=== PATIENT | male | born 1985 | race Two or more races ===

== ENCOUNTER 2019-06-17 19:00 | Inpatient (IN) | payer OTHER ==
[2019-06-17 23:49] VITALS: BMI 23.3
--- NOTE | 2019-06-18 02:16 | HP ---
COWS - Scale Resting Pulse: 0= HI 80 or Below Sweatin=Flushed/Facial Moisture Restless Observation: 0= Sits Still Pupil Size: 1= Pupils >than Normal Bone or Joint Aches: 4=Acute Joint/Muscle Pain Runny Nose/ Eye Tearin= Runny Nose/Eyes GI Upset > 30mins: 1= Stomach Cramp Tremor Observation: 2= Slight Tremor Visible Yawning Observation: 1= 1-2x During Session Anxiety or Irritability: 4=Extreme Anxiety Goose Flesh Skin: 0=Smooth Skin COWS Score: 17 CIWA Score Nausea/Vomitin Muscle Tremors: 3 Anxiety: 4-Mod. Anxious/Guarded Agitation: 4-Moderately Restless Paroxysmal Sweats: 2 Orientation: 1-Uncertain about Date Tacttile Disturbances: 0-None Auditory Disturbances: 0-None Visual Disturbances: 0-None Headache: 3-Moderate CIWA-Ar Total Score: 19 - Admission Criteria OASAS Guidelines: Admission for Medically Managed Detox: Requires at least one of the followin. CIWA greater than 12 2. Seizures within the past 24 hours 3. Delirium tremens within the past 24 hours 4. Hallucinations within the past 24 hours 5. Acute intervention needed for co occurring medical disorder 6. Acute intervention needed for co occurring psychiatric disorder 7. Severe withdrawal that cannot be handled at a lower level of care (continued vomiting, continued diarrhea, abnormal vital signs) requiring intravenous medication and/or fluids 8. Admission ROS [facility] Chief Complaint: Heroin and Xanax withdrawal symptoms Allergies/Adverse Reactions: Allergies Allergy/AdvReac Type Severity Reaction Status Date / Time No Known Allergies Allergy Verified 06/17/19 23:37 History of Present Illness: 34 years old male with 8 years of opioid dependence and 3 years of Benzo dependence is seeking admission to detox. Patient denies past medical history and denies suicidal ideation at this time. Exam Limitations: No Limitations - Ebola screening Have you traveled outside of the country in the last 21 days: No (N) Have you had contact with anyone from an Ebola affected area: No Do you have a fever: No - Review of Systems Constitutional: Chills, Loss of Appetite, Night Sweats, Changes in sleep, Weakness EENT: reports: No Symptoms Reported Respiratory: reports: No Symptoms reported Cardiac: reports: No Symptoms Reported GI: reports: Poor Appetite, Poor Fluid Intake, Abdominal cramping : reports: No Symptoms Reported Musculoskeletal: reports: Back Pain, Muscle Pain Integumentary: reports: Dryness, Flushing Neuro: reports: Headache, Tremors Endocrine: reports: No Symptoms Reported Hematology: reports: No Symptoms Reported Psychiatric: reports: No Sypmtoms Reported, Anxious, Depressed Other Systems: Reviewed and Negative Patient History - Patient Medical History Hx Anemia: No ( ) Hx Asthma: No Hx Chronic Obstructive Pulmonary Disease (COPD): No Hx Cancer: No Hx Cardiac Disorders: No Hx Congestive Heart Failure: No Hx Hypertension: No Hx Hypercholesterolemia: No Hx Pacemaker: No HX Cerebrovascular Accident: No Hx Seizures: No Hx Dementia: No Hx Diabetes: No Hx Gastrointestinal Disorders: No Hx Liver Disease: No Hx Genitourinary Disorders: No Hx Sexually Transmitted Disorders: No Hx Renal Disease (ESRD): No Hx Thyroid Disease: No Hx Human Immunodeficiency Virus (HIV): No Hx Hepatitis C: No Hx Depression: No Hx Suicide Attempt: No Hx Bipolar Disorder: No Hx Schizophrenia: No - Patient Surgical History Past Surgical History: No - PPD History Previous Implant?: Yes - Reproductive History Patient is a Female of Child Bearing Age (11 -55 yrs old): No (male) - Smoking Cessation Smoking history: Current every day smoker Have you smoked in the past 12 months: Yes Aproximately how many cigarettes per day: 20 Hx Chewing Tobacco Use: No Initiated information on smoking cessation: Yes 'Breaking Loose' booklet given: 06/18/19 - Substance & Tx. History Hx Alcohol Use: No Hx Substance Use: Yes Substance Use Type: Marijuana, Opiates Hx Substance Use Treatment: Yes ([facility]) - Substances abused Crystal meth Substance route: Smoking Frequency: 1-2 times per week Amount used: 1 gram Age of first use: 26 Date of last use: 06/16/19 Heroin Substance route: Inhalation Frequency: 1-2 times per week Amount used: half a gram, not using it that much Age of first use: 29 Date of last use: 06/17/19 Oxycontin Substance route: Oral Frequency: Daily Amount used: 4 of 15 mg Age of first use: 27 Date of last use: 05/22/19 Benzodiazepine (Klonopin) Substance route: Oral Frequency: 3-6 times per week Amount used: 1 mg Age of first use: 32 Date of last use: 06/14/19 Alprazolam (Xanax) Substance route: Oral Frequency: 3-6 times per week Amount used: 1 mg Age of first use: 24 Date of last use: 05/31/19 Family Disease History - Family Disease History Family History: Denies Admission Physical Exam [facility] - Vital Signs Vital Signs: Vital Signs - 24 hr 06/17/19 06/18/19 23:37 02:05 Temperature 96.7 F L 96.7 F L Pulse Rate 79 79 Respiratory 16 16 Rate Blood Pressure 112/70 112/70 - Physical General Appearance: Yes: Moderate Distress, Tremorous, Sweating, Anxious HEENTM: Yes: Within Normal Limits Respiratory: Yes: Lungs Clear, Normal Breath Sounds, No Respiratory Distress Neck: Yes: Supple Breast: Yes: Breast Exam Deferred Cardiology: Yes: Regular Rhythm, Regular Rate Abdominal: Yes: Normal Bowel Sounds Genitourinary: Yes: Within Normal Limits Back: Yes: Normal Inspection Musculoskeletal: Yes: Back pain, Muscle Pain Extremities: Yes: Tremors Neurological: Yes: Alert, Normal Mood/Affect Integumentary: Yes: Warm Lymphatic: Yes: Within Normal Limits - Diagnostic (1) Opioid dependence with withdrawal Current Visit: Yes Status: Acute (2) Sedative, hypnotic or anxiolytic dependence with withdrawal, uncomplicated Current Visit: Yes Status: Acute (3) Marijuana dependence Current Visit: Yes Status: Chronic (4) Nicotine dependence Current Visit: Yes Status: Chronic Cleared for Admission [facility] - Detox or Rehab [facility] Level of Care: Medically Managed Detox Regimen/Protocol: Methadone/Valium Breathalyzer - Breathalyzer Breathalyzer: 0 Urine Drug Screen - Test Device Lot number: [id number] Expiration date: 02/10/21 - Control Is test valid?: Yes - Results Drug screen NEGATIVE: No Urine drug screen results: THC-Marijuana, MET-Methamphetamine, AMP-Amphetamines , FEN-Fentanyl, MOP-Opiates, OXY-Oxycodone, BZO-Benzodiazepines Inpatient Rehab Admission - Rehab Decision to Admit Inpatient rehab admission?: No
[2019-06-18] MEDS ORDERED: METHOCARBAMOL 500 MG TABLET PO PRN (02:42)
[2019-06-18] MEDS ORDERED: MAG HYDROX/AL HYDROX/SIMETH 30 ML UNIT-DOSE CUP PO PRN (02:42)
[2019-06-18] MEDS ORDERED: NICOTINE POLACRILEX 2 MG GUM BUC PRN (02:42)
[2019-06-18] MEDS ORDERED: METHADONE HCL 10 MG TABLET (FOR DETOX USE ONLY) PO ONE (02:42)
[2019-06-18] MEDS ORDERED: hydrOXYzine PAMOATE 25 MG CAPSULE (FP) PO PRN (02:42)
[2019-06-18] MEDS ORDERED: MAGNESIUM HYDROX 2400MG/30ML ORAL SUSPENSION 30 ML CUP PO PRN (02:42)
[2019-06-18] MEDS ORDERED: BISMUTH SUBSALICYLATE 524 MG/30 ML UD PO PRN (02:42)
[2019-06-18] MEDS ORDERED: MENTHOL/PHENOL 1 EACH UD MM PRN (02:42)
[2019-06-18] MEDS ORDERED: IBUPROFEN 400 MG TABLET (FP) PO PRN (02:42)
[2019-06-18] MEDS ORDERED: diazePAM 5 MG TABLET PO PRN (02:42)
[2019-06-18] MEDS ORDERED: ACETAMINOPHEN 325 MG TABLET (FP) PO PRN ×2 (02:42)
[2019-06-18] MEDS ORDERED: MAGNESIUM CITRATE 300 ML BOTTLE PO PRN (02:42)
[2019-06-18] MEDS ORDERED: cloNIDine HCL 0.1 MG TABLET PO PRN (02:42)
[2019-06-18] MEDS: diazePAM 5 MG TABLET PO SCH ×3 (06:31→22:32)
[2019-06-18] MEDS: PRENATAL VITAMINS W/ FOLIC ACID TABLET (FP) PO SCH (10:27)
[2019-06-18] MEDS: NICOTINE 14 MG/24 HOURS TOPICAL PATCH TD SCH (10:27)
--- NOTE | 2019-06-18 10:46 | PN ---
S CIWA - CIWA Score Nausea/Vomitin Muscle Tremors: 3 Anxiety: 3 Agitation: 3 Paroxysmal Sweats: No Perspiration Orientation: 0-Oriented Tacttile Disturbances: 1-Very Mild Itch/Numbness Auditory Disturbances: 0-None Visual Disturbances: 0-None Headache: 2-Mild CIWA-Ar Total Score: 14 [facility] COWS - Scale Resting Pulse: 1= [place] 81-100 Sweatin= Chills/Flushing Restless Observation: 1= Difficult to Sit Still Pupil Size: 1= Pupils >than Normal Bone or Joint Aches: 2= Severe Diffuse Aches Runny Nose/ Eye Tearin= Nasal Congestion GI Upset > 30mins: 2= Nausea/Diarrhea Tremor Observation of Outstretched Hands: 2= Slight Tremor Visible Yawning Observation: 1= 1-2x During Session Anxiety or Irritability: 2=Irritable/Anxious Goose Flesh Skin: 0=Smooth Skin COWS Score: 14 [facility] Progress Note (SOAP) Subjective: alert,irritable,anxious,interrupted sleep,tremor,pain in the body and back Objective: 06/18/19 10:42 Vital Signs Temperature 97.6 F 06/18/19 09:21 Pulse Rate 83 06/18/19 09:21 Respiratory Rate 18 06/18/19 09:21 Blood Pressure 112/53 L 06/18/19 09:21 O2 Sat by Pulse Oximetry (%) 06/18/19 10:44 labs pending Assessment: 06/18/19 10:44 withdrawal symptom Plan: continue detox,methadone and valium regimen
--- NOTE | 2019-06-18 11:55 | EKG ---
Test Reason : Blood Pressure : / mmHG Vent. Rate : 064 BPM Atrial Rate : 064 BPM P-R Int : 112 ms QRS Dur : 096 ms QT Int : 400 ms P-R-T Axes : 058 065 046 degrees QTc Int : 412 ms NORMAL SINUS RHYTHM RSR' OR QR PATTERN IN V1 SUGGESTS RIGHT VENTRICULAR CONDUCTION DELAY NO PREVIOUS ECGS AVAILABLE Confirmed by EHSAN NEWTON MD ([id number]) on 06/18/2019 11:55:47 AM Referred By: Confirmed By:EHSAN NEWTON MD
[2019-06-18] MEDS: THIAMINE HCL 100 MG TABLET (FP) PO SCH (22:32)
[2019-06-18] MEDS: MELATONIN 5 MG TABLETS PO PRN (22:32)
[2019-06-19] MEDS: diazePAM 5 MG TABLET PO SCH ×2 (05:49→18:01)
[2019-06-19] MEDS ORDERED: METHADONE HCL 5 MG TABLET (FOR DETOX USE ONLY) PO ONE (10:00)
[2019-06-19] MEDS: PRENATAL VITAMINS W/ FOLIC ACID TABLET (FP) PO SCH (10:15)
[2019-06-19] MEDS: NICOTINE 14 MG/24 HOURS TOPICAL PATCH TD SCH (10:15)
[2019-06-19 10:23] LABS: HEMATOCRIT 42.3 % (35.4-49); HEMOGLOBIN 14.3 GM/dL (11.7-16.9); MCH 29.8 pg (25.7-33.7); MCHC 33.9 g/dl (32.0-35.9); MEAN CELL VOLUME 88.1 fl (80-96); MEAN PLT VOLUME 9.2 fl (7.5-11.1); PLATELET COUNT 211 K/MM3 (134-434); RBC 4.81 M/mm3 (4.00-5.60); RDW 13.9 % (11.9-15.9); WHITE BLOOD COUNT 6.2 K/mm3 (4.0-10.0)
[2019-06-19 10:36] LABS: ALBUMIN 3.4 g/dl (3.4-5.0); BILIRUBIN,TOTAL 0.2 mg/dL (0.2-1); BLOOD UREA NITROGEN 15.5 mg/dL (7-18); CREATININE 0.7 mg/dL (0.55-1.3); POTASSIUM 4.4 mmol/L (3.5-5.1); TOT PROT 6.2 g/dl (6.4-8.2)
--- NOTE | 2019-06-19 10:44 | PN ---
S CIWA - CIWA Score Nausea/Vomitin-No Nausea/No Vomiting Muscle Tremors: 2 Anxiety: 3 Agitation: 1-Slight > Activity Paroxysmal Sweats: 3 Orientation: 0-Oriented Tacttile Disturbances: 0-None Auditory Disturbances: 0-None Visual Disturbances: 0-None Headache: 2-Mild CIWA-Ar Total Score: 11 S COWS - Scale Resting Pulse: 1= [place] 81-100 Sweatin= Beads of Sweat on Face Restless Observation: 1= Difficult to Sit Still Pupil Size: 0= Normal to Room Light Bone or Joint Aches: 1= Mild Discomfort Runny Nose/ Eye Tearin= None GI Upset > 30mins: 0= None Tremor Observation of Outstretched Hands: 2= Slight Tremor Visible Yawning Observation: 1= 1-2x During Session Anxiety or Irritability: 2=Irritable/Anxious Goose Flesh Skin: 0=Smooth Skin COWS Score: 11 S Progress Note (SOAP) Subjective: c/o interrupted sleep, anxiety, irritability, and sweats. Objective: 06/19/19 10:43 Vital Signs 06/19/19 06/19/19 06/19/19 03:30 06:00 09:06 Temperature 96.8 F L 98.7 F Pulse Rate 85 81 Respiratory 18 18 18 Rate Blood Pressure 90/66 104/61 Lab Results WBC 6.2 K/mm3 (4.0-10.0) 06/19/19 08:00 RBC 4.81 M/mm3 (4.00-5.60) 06/19/19 08:00 Hgb 14.3 GM/dL (11.7-16.9) 06/19/19 08:00 Hct 42.3 % (35.4-49) 06/19/19 08:00 MCV 88.1 fl (80-96) 06/19/19 08:00 MCHC 33.9 g/dl (32.0-35.9) 06/19/19 08:00 RDW 13.9 % (11.9-15.9) 06/19/19 08:00 Plt Count 211 K/MM3 (134-434) 06/19/19 08:00 Sodium 140 mmol/L (136-145) 06/19/19 08:00 Potassium 4.4 mmol/L (3.5-5.1) 06/19/19 08:00 Chloride 103 mmol/L (98-107) 06/19/19 08:00 Carbon Dioxide 35 mmol/L (21-32) H 06/19/19 08:00 Anion Gap 2 MMOL/L (8-16) L 06/19/19 08:00 BUN 15.5 mg/dL (7-18) 06/19/19 08:00 Creatinine 0.7 mg/dL (0.55-1.3) 06/19/19 08:00 Random Glucose 70 mg/dL (74-106) L 06/19/19 08:00 Calcium 9.0 mg/dL (8.5-10.1) 06/19/19 08:00 Labs noted. Assessment: 06/19/19 10:44 AOX3, in no acute distress. Full ROM, ambulating in the unit. Withdrawal symptoms. Plan: continue detox.
[2019-06-19] MEDS: MELATONIN 5 MG TABLETS PO PRN (22:32)
[2019-06-19] MEDS: THIAMINE HCL 100 MG TABLET (FP) PO SCH (22:32)
[2019-06-20] MEDS ORDERED: diazePAM 5 MG TABLET PO ONE (06:00)
[2019-06-20] MEDS ORDERED: METHADONE HCL 10 MG TABLET (FOR DETOX USE ONLY) PO ONE (10:00)
[2019-06-20] MEDS: NICOTINE 14 MG/24 HOURS TOPICAL PATCH TD SCH (10:38)
[2019-06-20] MEDS: PRENATAL VITAMINS W/ FOLIC ACID TABLET (FP) PO SCH (10:38)
--- NOTE | 2019-06-20 14:21 | PN ---
[facility] CIWA - CIWA Score Nausea/Vomitin-No Nausea/No Vomiting Muscle Tremors: 2 Anxiety: 2 Agitation: 1-Slight > Activity Paroxysmal Sweats: 2 Orientation: 0-Oriented Tacttile Disturbances: 0-None Auditory Disturbances: 0-None Visual Disturbances: 0-None Headache: 0-None Present CIWA-Ar Total Score: 7 [facility] COWS - Scale Resting Pulse: 1= [place] 81-100 Sweatin= Chills/Flushing Restless Observation: 0= Sits Still Pupil Size: 0= Normal to Room Light Bone or Joint Aches: 1= Mild Discomfort Runny Nose/ Eye Tearin= None GI Upset > 30mins: 1= Stomach Cramp Tremor Observation of Outstretched Hands: 2= Slight Tremor Visible Yawning Observation: 0= None Anxiety or Irritability: 1=Feels Anxious/Irritable Goose Flesh Skin: 0=Smooth Skin COWS Score: 7 S Progress Note (SOAP) Subjective: Interrupted sleep Objective: 06/20/19 14:19 Last Vital Signs Temp Pulse Resp BP Pulse Ox 97.7 F 88 18 114/72 06/20/19 13:03 06/20/19 13:03 06/20/19 13:03 06/20/19 13:03 Laboratory Tests 06/19/19 06/19/19 06/19/19 08:00 08:00 08:00 WBC 6.2 RBC 4.81 Hgb 14.3 Hct 42.3 MCV 88.1 MCH 29.8 MCHC 33.9 RDW 13.9 Plt Count 211 MPV 9.2 Sodium 140 Potassium 4.4 Chloride 103 Carbon Dioxide 35 H Anion Gap 2 L BUN 15.5 Creatinine 0.7 Est GFR (CKD-EPI)AfAm 141.70 Est GFR (CKD-EPI)NonAf 122.26 Random Glucose 70 L Calcium 9.0 Total Bilirubin 0.2 AST 8 L ALT 14 Alkaline Phosphatase 53 Total Protein 6.2 L Albumin 3.4 RPR Titer Nonreactive Labs reviewed Assessment: 06/20/19 14:20 Withdrawal sxs Plan: Continue detox Encouraged PO water intake
[2019-06-20] MEDS: MELATONIN 5 MG TABLETS PO PRN (22:07)
[2019-06-20] MEDS: THIAMINE HCL 100 MG TABLET (FP) PO SCH (22:07)
[2019-06-21] MEDS ORDERED: METHADONE HCL 5 MG TABLET (FOR DETOX USE ONLY) PO ONE (06:00)
--- NOTE | 2019-06-21 08:52 | DS ---
[facility] Detox Discharge Summary Admission Date: 06/18/19 Discharge Date: 06/21/19 - History Present History: Opioid Dependence, Sedative Dependence - Physical Exam Results Vital Signs: Vital Signs Temperature 97.3 F L 06/21/19 06:46 Pulse Rate 87 06/21/19 06:46 Respiratory Rate 18 06/21/19 06:46 Blood Pressure 104/60 06/21/19 06:46 O2 Sat by Pulse Oximetry (%) Pertinent Admission Physical Exam Findings: pt arrived in withdrawals Laboratory Tests 06/19/19 06/19/19 06/19/19 08:00 08:00 08:00 WBC 6.2 RBC 4.81 Hgb 14.3 Hct 42.3 MCV 88.1 MCH 29.8 MCHC 33.9 RDW 13.9 Plt Count 211 MPV 9.2 Sodium 140 Potassium 4.4 Chloride 103 Carbon Dioxide 35 H Anion Gap 2 L BUN 15.5 Creatinine 0.7 Est GFR (CKD-EPI)AfAm 141.70 Est GFR (CKD-EPI)NonAf 122.26 Random Glucose 70 L Calcium 9.0 Total Bilirubin 0.2 AST 8 L ALT 14 Alkaline Phosphatase 53 Total Protein 6.2 L Albumin 3.4 RPR Titer Nonreactive today pt is aaox3 ambulating no acute distress no s/s of withdrawals - Treatment Hospital Course: Detox Protocol Followed, Detoxed Safely, Responded well, Discharged Condition Good, Rehab Referral Accepted Patient has Accepted a Rehab Referral to: [facility] - Medication Discharge Medications: Ambulatory Orders NK [No Known Home Medication] 06/17/19 - Diagnosis (1) Opioid dependence with withdrawal Current Visit: Yes Status: Chronic (2) Sedative, hypnotic or anxiolytic dependence with withdrawal, uncomplicated Current Visit: Yes Status: Chronic (3) Marijuana dependence Current Visit: Yes Status: Chronic (4) Nicotine dependence Current Visit: Yes Status: Chronic Qualifiers: Nicotine product type: cigarettes Substance use status: uncomplicated Qualified Code(s): F17.210 - Nicotine dependence, cigarettes, uncomplicated - AMA Did Patient Leave Against Medical Advice: No
[2019-06-21 09:23] VITALS: BP 102/65; PULSE 76; TEMP 97.5
[2019-06-21] MEDS: NICOTINE 14 MG/24 HOURS TOPICAL PATCH TD SCH (10:30)
[2019-06-21] MEDS: PRENATAL VITAMINS W/ FOLIC ACID TABLET (FP) PO SCH (10:52)
== END 2019-06-21 13:45 | disposition other institution (70) | DRG 773 ==
LOC: YASAS 19:00 → Y6N 06-18 02:20
PROVIDERS: ADMIT Surgery; ATTEND Surgery
PROC: HZ2ZZZZ Detoxification Services for Substance Abuse Treatment (ICD-10-PCS; principal; 2019-06-18)
DX: F11.23 Opioid dependence with withdrawal (principal); F13.230 Sedative, hypnotic or anxiolytic dependence with withdrawal, uncomplicated; F12.20 Cannabis dependence, uncomplicated; F17.210 Nicotine dependence, cigarettes, uncomplicated
CPT/HCPCS: 36415; 80053; 85027; 86480; 86593; 93005; 93010

== ENCOUNTER 2019-06-21 13:53 | Inpatient (IN) | payer OTHER ==
[2019-06-21] MEDS ORDERED: ACETAMINOPHEN 325 MG TABLET (FP) PO PRN (22:44)
[2019-06-21] MEDS ORDERED: P-EPHED 60MG/TRIPROLIDI 2.5MG TABLET PO PRN (22:44)
[2019-06-21] MEDS ORDERED: LOPERAMIDE HCL 2 MG CAPSULE PO PRN (22:44)
[2019-06-21] MEDS ORDERED: MENTHOL/PHENOL 1 EACH UD MM PRN (22:44)
[2019-06-21] MEDS ORDERED: MAGNESIUM HYDROX 2400MG/30ML ORAL SUSPENSION 30 ML CUP PO PRN (22:44)
[2019-06-21] MEDS ORDERED: IBUPROFEN 400 MG TABLET (FP) PO PRN (22:44)
[2019-06-21] MEDS ORDERED: MAG HYDROX/AL HYDROX/SIMETH 30 ML UNIT-DOSE CUP PO PRN (22:44)
[2019-06-21] MEDS ORDERED: MAGNESIUM CITRATE 300 ML BOTTLE PO PRN (22:44)
[2019-06-21] MEDS ORDERED: guaiFENesin 200 MG/10 ML 10 ML UNIT-DOSE CUPS PO PRN (22:44)
--- NOTE | 2019-06-21 22:46 | HP ---
CIWA Score - Admission Criteria OASAS Guidelines: Admission for Medically Managed Detox: Requires at least one of the followin. CIWA greater than 12 2. Seizures within the past 24 hours 3. Delirium tremens within the past 24 hours 4. Hallucinations within the past 24 hours 5. Acute intervention needed for co occurring medical disorder 6. Acute intervention needed for co occurring psychiatric disorder 7. Severe withdrawal that cannot be handled at a lower level of care (continued vomiting, continued diarrhea, abnormal vital signs) requiring intravenous medication and/or fluids 8. Admission ROS S - HPI Allergies/Adverse Reactions: Allergies Allergy/AdvReac Type Severity Reaction Status Date / Time No Known Allergies Allergy Verified 06/17/19 23:37 - Ebola screening Have you traveled outside of the country in the last 21 days: No (N) Have you had contact with anyone from an Ebola affected area: No Do you have a fever: No Patient History - Patient Medical History Hx Anemia: No ( ) Hx Asthma: No Hx Chronic Obstructive Pulmonary Disease (COPD): No Hx Cancer: No Hx Cardiac Disorders: No Hx Congestive Heart Failure: No Hx Hypertension: No Hx Hypercholesterolemia: No Hx Pacemaker: No HX Cerebrovascular Accident: No Hx Seizures: No Hx Dementia: No Hx Diabetes: No Hx Gastrointestinal Disorders: No Hx Liver Disease: No Hx Genitourinary Disorders: No Hx Sexually Transmitted Disorders: No Hx Renal Disease (ESRD): No Hx Thyroid Disease: No Hx Human Immunodeficiency Virus (HIV): No Hx Hepatitis C: No Hx Depression: No Hx Suicide Attempt: No Hx Bipolar Disorder: No Hx Schizophrenia: No - Patient Surgical History Past Surgical History: No Hx Neurologic Surgery: No Hx Cataract Extraction: No Hx Cardiac Surgery: No Hx Lung Surgery: No Hx Breast Surgery: No Hx Breast Biopsy: No Hx Abdominal Surgery: No Hx Appendectomy: No Hx Cholecystectomy: No Hx Genitourinary Surgery: No Hx Section: No Hx Orthopedic Surgery: No Anesthesia Reaction: No - Smoking Cessation Smoking history: Current every day smoker Have you smoked in the past 12 months: Yes Aproximately how many cigarettes per day: 20 Hx Chewing Tobacco Use: No Initiated information on smoking cessation: Yes 'Breaking Loose' booklet given: 06/21/19 - Substances abused Crystal meth Substance route: Smoking Frequency: 1-2 times per week Amount used: 1 gram Age of first use: 26 Date of last use: 06/16/19 Heroin Substance route: Inhalation Frequency: 1-2 times per week Amount used: half a gram, not using it that much Age of first use: 29 Date of last use: 06/17/19 Oxycontin Substance route: Oral Frequency: Daily Amount used: 4 of 15 mg Age of first use: 27 Date of last use: 05/22/19 Benzodiazepine (Klonopin) Substance route: Oral Frequency: 3-6 times per week Amount used: 1 mg Age of first use: 32 Date of last use: 06/14/19 Alprazolam (Xanax) Substance route: Oral Frequency: 3-6 times per week Amount used: 1 mg Age of first use: 24 Date of last use: 05/31/19 Breathalyzer - Breathalyzer Breathalyzer: 0 Urine Drug Screen - Test Device Lot number: [id number] Expiration date: 02/10/21 - Control Is test valid?: Yes - Results Drug screen NEGATIVE: No Urine drug screen results: THC-Marijuana, MET-Methamphetamine, AMP-Amphetamines , FEN-Fentanyl, MOP-Opiates, OXY-Oxycodone, BZO-Benzodiazepines Inpatient Rehab Admission - Rehab Decision to Admit Inpatient rehab admission?: Yes - Initial Determination Are CD services needed?: No Free of communicable disease: Yes Not in need of hospitalization: Yes - Rehab Admission Criteria Previous failed treatment: Yes Poor recovery environment: Yes Comorbidities: Yes Lacks judgement: No Patient is meeting Inpatient Rehab admission criteria:: Yes
--- NOTE | 2019-06-22 10:07 | PN ---
[facility] Progress Note Note: Pt is a 34 y/o male admitted to rehab yesterday for heroin,oxy, crystal meth, xanax and klonopin use disorder. Pt c/o profuse sweating and jitteriness last night. Exhibiting sniffles currently. Patient appears to have been discharged yesterday from [address] [place] [address] per [facility] documentation and was referred to [facility] rehab aftercare. Vital Signs - 8 hr 06/22/19 06/22/19 03:30 06:46 Temperature 97.3 F L Pulse Rate 62 Respiratory 18 18 Rate Blood Pressure 106/65 Alert o x 3 oob ambulating with steady gait nad ent;nasal drainage cardiac:s1 s2 Lungs:cta,felicity. extremities:no edema;no cyanosis/clubbing;skin pink. A/P withdrawal sx rhinorrhea Actifed prn vistaril prn as directed increase po fluids
[2019-06-22] MEDS: PRENATAL VITAMINS W/ FOLIC ACID TABLET (FP) PO SCH (10:58)
[2019-06-22] MEDS: NICOTINE 14 MG/24 HOURS TOPICAL PATCH TD SCH (10:58)
[2019-06-22] MEDS: hydrOXYzine PAMOATE 50 MG CAPSULE (FP) PO PRN ×2 (10:59→22:04)
[2019-06-22] MEDS: NICOTINE POLACRILEX 2 MG GUM BUC PRN ×2 (10:59→22:02)
--- NOTE | 2019-06-22 11:11 | HP ---
[facility] Rehab Assess/Revision - Admission History Admitted to Rehab from: [address] Date of Admission to Rehab: 06/21/19 - Vital signs Vital Signs: Vital Signs Period Temp Pulse Resp BP Sys/Vaughan Pulse Ox Last 24 Hr 97.3 F 62 18-20 106/65 - Findings Detox History & Physical reviewed: Yes Concur with findings: Yes Comments/Additional Findings: Pt was admitted to [address] from [address] [place] [address] after completing detox Tx for opioids and benzos. Pt denies any past Medical or psych history. Inpatient Rehab Admission - Rehab Decision to Admit Inpatient rehab admission?: Yes - Initial Determination Are CD services needed?: Yes Free of communicable disease: Yes Not in need of hospitalization: Yes - Rehab Admission Criteria Previous failed treatment: No Poor recovery environment: Yes Comorbidities: No Lacks judgement: Yes Patient is meeting Inpatient Rehab admission criteria:: Yes (Dificulty stay sober "especially on the pills". )
[2019-06-22] MEDS: THIAMINE HCL 100 MG TABLET (FP) PO SCH (22:02)
[2019-06-22] MEDS: MELATONIN 5 MG TABLETS PO PRN (22:04)
[2019-06-23] MEDS: PRENATAL VITAMINS W/ FOLIC ACID TABLET (FP) PO SCH (10:38)
[2019-06-23] MEDS: NICOTINE 14 MG/24 HOURS TOPICAL PATCH TD SCH (10:38)
[2019-06-23] MEDS: THIAMINE HCL 100 MG TABLET (FP) PO SCH (21:51)
[2019-06-23] MEDS: hydrOXYzine PAMOATE 50 MG CAPSULE (FP) PO PRN (21:52)
[2019-06-23] MEDS: MELATONIN 5 MG TABLETS PO PRN (21:52)
[2019-06-24] MEDS: PRENATAL VITAMINS W/ FOLIC ACID TABLET (FP) PO SCH (10:22)
[2019-06-24] MEDS: NICOTINE 14 MG/24 HOURS TOPICAL PATCH TD SCH (10:22)
[2019-06-24] MEDS: NICOTINE POLACRILEX 2 MG GUM BUC PRN (10:23)
[2019-06-24] MEDS: hydrOXYzine PAMOATE 50 MG CAPSULE (FP) PO PRN (10:23)
--- NOTE | 2019-06-24 11:53 | PN ---
[facility] Progress Note Note: Pt c/o difficulty sleeping and states melatonin 5 mg po hs not effective. Denies PMHx or Psych Hx and not on meds. Vital Signs - 24 hr 06/24/19 06/24/19 06/24/19 00:30 03:30 07:26 Temperature 97.2 F L Pulse Rate 66 Respiratory 18 18 18 Rate Blood Pressure 100/75 Alert o x 3 Nad A/P Insomnia D/w pt will increase to Melatonin 10 mg po hs4 Increase po fluids. Pt is agreeable to poc.
[2019-06-24] MEDS: MELATONIN 5 MG TABLETS PO PRN (21:32)
[2019-06-24] MEDS: THIAMINE HCL 100 MG TABLET (FP) PO SCH (21:32)
[2019-06-25] MEDS: NICOTINE 14 MG/24 HOURS TOPICAL PATCH TD SCH (10:19)
[2019-06-25] MEDS: PRENATAL VITAMINS W/ FOLIC ACID TABLET (FP) PO SCH (10:21)
[2019-06-25] MEDS: hydrOXYzine PAMOATE 50 MG CAPSULE (FP) PO PRN (10:21)
[2019-06-25] MEDS: NICOTINE POLACRILEX 2 MG GUM BUC PRN ×2 (10:22→21:31)
[2019-06-25] MEDS: THIAMINE HCL 100 MG TABLET (FP) PO SCH (21:31)
[2019-06-25] MEDS: MELATONIN 5 MG TABLETS PO PRN (21:31)
[2019-06-26] MEDS: PRENATAL VITAMINS W/ FOLIC ACID TABLET (FP) PO SCH (10:03)
[2019-06-26] MEDS: NICOTINE 14 MG/24 HOURS TOPICAL PATCH TD SCH (10:03)
[2019-06-26] MEDS: hydrOXYzine PAMOATE 50 MG CAPSULE (FP) PO PRN ×2 (10:04→21:58)
[2019-06-26] MEDS: NICOTINE POLACRILEX 2 MG GUM BUC PRN (10:05)
[2019-06-26] MEDS: MELATONIN 5 MG TABLETS PO PRN (21:58)
[2019-06-26] MEDS: THIAMINE HCL 100 MG TABLET (FP) PO SCH (21:59)
[2019-06-27] MEDS: NICOTINE 14 MG/24 HOURS TOPICAL PATCH TD SCH (10:22)
[2019-06-27] MEDS: PRENATAL VITAMINS W/ FOLIC ACID TABLET (FP) PO SCH (10:22)
[2019-06-27] MEDS: NICOTINE POLACRILEX 2 MG GUM BUC PRN ×2 (10:23→21:44)
[2019-06-27] MEDS: hydrOXYzine PAMOATE 50 MG CAPSULE (FP) PO PRN (10:24)
[2019-06-27] MEDS: THIAMINE HCL 100 MG TABLET (FP) PO SCH (21:43)
[2019-06-27] MEDS: MELATONIN 5 MG TABLETS PO PRN (21:44)
[2019-06-28 07:16] VITALS: BP 103/60; PULSE 71; TEMP 97.7
--- NOTE | 2019-06-28 09:32 | DS ---
[facility] Rehab Discharge Summary - [facility] Rehab Discharge Summary Admission Date: 06/21/19 Discharge Date: 06/28/19 - History Present History: Cannabis dependence, Opioid dependence, Sedative dependence Additional Comments: Pt is a 34 y/o male admitted to rehab for polysubstance use disorder discharging today. Pt met with his counselor and has been referred to [facility] for CD aftercare. Pt reports he has no current primary care and has been instructed to seek services at [facility] outpt clinic for primary care. Pertinent Past History: Denies - Discharge Physical Exam Vital Signs: Vital Signs Temperature 97.7 F 06/28/19 07:15 Pulse Rate 71 06/28/19 07:15 Respiratory Rate 18 06/28/19 07:15 Blood Pressure 103/60 06/28/19 07:15 O2 Sat by Pulse Oximetry (%) Alert o x 3 nad oob ambulating with steady gait Heent:Normocephalic,eomi,landon,hearing grossly normal Cardiac:s1 s2, rrr Lungs:cta,felicity. Abdomen:soft,+bs,nt,nd-flat Extremities/Skin:No edema or cyanosis, Full ROM, skin intact Pertinent Admission Physical Exam Findings: unremarkable/unchanged - Treatment Discharge Condition: Discharge condition good Hospital Course: rehabilitated safely and responded well Accepted CD aftercare referral - Medication Discharge Medications: Ambulatory Orders Naloxone HCl [Narcan] 4 mg NS ONCE #1 spray 06/28/19 - Medication-Assisted Treatment (MAT) Medication-Assisted Treatment (MAT): No - Discharge Instructions Diet, activity, other medical instructions: Diet: Activity: Other medical instructions: - Diagnosis (1) Marijuana dependence Status: Chronic (2) Nicotine dependence Status: Chronic Qualifiers: Nicotine product type: cigarettes Substance use status: uncomplicated Qualified Code(s): F17.210 - Nicotine dependence, cigarettes, uncomplicated (3) Opioid dependence with withdrawal Status: Chronic (4) Sedative, hypnotic or anxiolytic dependence with withdrawal, uncomplicated Status: Chronic (5) Poor sleep hygiene Status: Acute - Follow-up Referral Minutes to complete discharge: 30 - AMA Did Patient Leave Against Medical Advice: No
[2019-06-28] MEDS: PRENATAL VITAMINS W/ FOLIC ACID TABLET (FP) PO SCH (10:06)
[2019-06-28] MEDS: NICOTINE 14 MG/24 HOURS TOPICAL PATCH TD SCH (10:06)
== END 2019-06-28 10:50 | disposition home or self-care (01) | DRG 772 ==
LOC: YASAS 13:53 → Y5N 13:54
PROVIDERS: ADMIT Neuromusculoskeletal Medicine & OMM; ATTEND Neuromusculoskeletal Medicine & OMM
PROC: HZ42ZZZ Group Counseling for Substance Abuse Treatment, Cognitive-Behavioral (ICD-10-PCS; principal; 2019-06-21)
DX: F11.20 Opioid dependence, uncomplicated (principal); F13.20 Sedative, hypnotic or anxiolytic dependence, uncomplicated; F15.10 Other stimulant abuse, uncomplicated; F17.220 Nicotine dependence, chewing tobacco, uncomplicated; G47.00 Insomnia, unspecified; J34.89 Other specified disorders of nose and nasal sinuses